=== PATIENT | male | born 1965 | race Caucasian/White ===

== ENCOUNTER 2017-01-13 17:59 | Emergency (ER) | payer BC ==
[~2017-01-13] VITALS: Ht 182.9 cm; Wt 131.4 kg
[~2017-01-13 17:59] MED LIST: DEPAKOTE500 MG PO; INDOCIN25 MG PO; KLONOPIN1 MG PO; LEXAPRO10 MG PO; LIDODERM 5% P1 PATCH TD; LORAZEPAM1 MG PO; NORCO 7.5/321 TABLET PO; PREDNISONE20 MG PO; SEROQUEL300 MG PO; SEROQUEL50 MG PO; VALIUM5 MG PO; XANAX0.5 MG PO; XANAX1 MG PO
[2017-01-13] MEDS ORDERED: CARBAMAZEPINE200 MG PO (18:27)
[2017-01-13] MEDS ORDERED: VALIUM10 MG PO (18:27)
[2017-01-13] MEDS ORDERED: TRAZODONE HCL100 MG PO (18:28)
[2017-01-13] MEDS ORDERED: HALOPERIDOL5 MG PO (18:28)
[2017-01-13] MEDS ORDERED: NEURONTIN600 MG PO (18:29)
[2017-01-13 19:50] LABS: BASOPHIL COUNT 0.1 K/uL (0-0.1); EOSINOPHIL (%) 3.1 % (0-5); EOSINOPHIL COUNT 0.2 K/uL (0-0.3); HEMATOCRIT 40.7 % (38.0-50.0); IMMATURE GRANULOCYTE (%) 0.5 % (0.0-0.7); INSTRUMENT ABS NEUTROPHIL CT 4.1 K/uL; LYMPHOCYTE COUNT 1.5 K/uL (1.0-2.8); MCH 30.9 PG (29.0-34.0); MCHC 33.4 G/DL (30.0-36.0); MCV 92.5 FL (86-99); MEAN PLAT.VOLUME 9.6 uM^3 (9.0-12.4); MONOCYTE (%) 7.9 % (3-12); MONOCYTE COUNT 0.5 K/uL (0-0.8); NEUTROPHIL (%) 64.1 % (45-76); NEUTROPHIL COUNT 4.1 K/uL (1.8-6.4); PLATELET COUNT 236 K/uL (156-360); RBC DIS.WIDTH-CV 12.6 % (11.8-14.6); RBC DIS.WIDTH-SD 42.8 % (39-53); WHITE BLOOD COUNT 6.4 K/uL (4.1-10.2)
[2017-01-13 20:08] LABS: CHLORIDE 103 mEq/L (99-109); POTASSIUM 4.2 mEq/L (3.7-5.4); SODIUM 138 mEq/L (136-147)
[2017-01-13 20:10] LABS: GLUCOSE 95 mg/dL (70-99)
[2017-01-13 20:11] LABS: ANION GAP 10 MEQ/L (2-14)
[2017-01-13 20:14] LABS: GFR ESTIMATE (CALCULATED) > 59 mL/min/
[2017-01-13 20:15] LABS: UREA NITROGEN (BUN) 16 mg/dL (9-23)
[2017-01-13 20:36] LABS: PROTHROMBIN TIME 9.7 (9.2-11.2); PTT 28.6 (25-32)
[2017-01-13 22:51] VITALS: BP 152/92
== END 2017-01-13 22:54 | disposition home or self-care (01) ==
LOC: EME 17:59
PROVIDERS: Emergency Medicine
DX: D16.4 Benign neoplasm of bones of skull and face (principal); F41.1 Generalized anxiety disorder; F32.9 Major depressive disorder, single episode, unspecified; F17.200 Nicotine dependence, unspecified, uncomplicated
CPT/HCPCS: 70450; 80048; 85025; 85610; 85730; 93005; 99281; 99283; J2060

== ENCOUNTER 2017-07-30 14:00 | Emergency (ER) | payer BC ==
[~2017-07-30] VITALS: Ht 182.9 cm; Wt 120.6 kg
[~2017-07-30 14:00] MED LIST changes: +CARBAMAZEPINE200 MG PO; +HALOPERIDOL5 MG PO; +NEURONTIN600 MG PO; +TRAZODONE HCL100 MG PO; +VALIUM10 MG PO
[2017-07-30 14:49] LABS: HEMATOCRIT 43.3 % (38.0-50.0); HEMOGLOBIN 15.1 G/DL (12.5-16.6); MCHC 34.9 G/DL (30.0-36.0); MCV 91.7 FL (86-99); PLATELET COUNT 241 K/uL (156-360); RBC DIS.WIDTH-CV 12.3 % (11.8-14.6); RBC DIS.WIDTH-SD 42.3 % (39-53); RED BLOOD COUNT 4.72 M/uL (4.00-5.50); WHITE BLOOD COUNT 7.5 K/uL (4.1-10.2)
[2017-07-30 14:59] LABS: CHLORIDE 106 mEq/L (99-109); POTASSIUM 4.1 mEq/L (3.7-5.4); SODIUM 138 mEq/L (136-147)
[2017-07-30 15:01] LABS: GLUCOSE 104 mg/dL (70-99)
[2017-07-30 15:05] LABS: CREATININE 0.8 mg/dL (0.6-1.3); GFR ESTIMATE (CALCULATED) > 59 mL/min/ (58.99-99999); UREA NITROGEN (BUN) 15 mg/dL (9-23)
[2017-07-30 15:48] LABS: CARBAMAZEPINE (TEGRETOL) 5.5 MCG/ML (4.0-12.0)
[2017-07-30 17:00] VITALS: BP 165/102
== END 2017-07-30 17:01 | disposition home or self-care (01) ==
LOC: EME 14:00
PROVIDERS: Emergency Medicine
DX: R45.89 Other symptoms and signs involving emotional state (principal); T43.505A Adverse effect of unspecified antipsychotics and neuroleptics, initial encounter; F32.9 Major depressive disorder, single episode, unspecified; F43.10 Post-traumatic stress disorder, unspecified; F17.200 Nicotine dependence, unspecified, uncomplicated
CPT/HCPCS: 80048; 80156; 85027; 99281; 99284